=== PATIENT | male | born 1955 | race Caucasian/White ===

== ENCOUNTER 2022-10-19 10:55 | Day surgery (SDC) | payer MEDICARE, BC ==
[~2022-10-19 10:55] MED LIST: AZAT50TA18 PO; DULA0.75 SQ; IRON15TA3 PO; LIDOcaine 1% 30ml preserv. free vial SQ ONE; MECO10005 PO; PRED10TA23 PO; VITA1TAB97 PO
[2022-10-19] MEDS ORDERED: INSU100V5 IJ (11:12)
[2022-10-19] MEDS ORDERED: INSU100V9 SQ (11:12)
[2022-10-19] MEDS ORDERED: ATOR10TA70 PO (11:12)
[2022-10-19] MEDS ORDERED: ADAL40PE SUBCUT (11:14)
[2022-10-19 11:20] VITALS: BP 124/77
[2022-10-19 11:30] VITALS: BP 134/88
[2022-10-19 11:45] VITALS: BP 126/81
== END 2022-10-19 12:00 | disposition home or self-care (01) ==
LOC: SSTAY O 10:55
PROVIDERS: ATTEND Radiology Vascular & Interventional Radiology
DX: Z45.2 Encounter for adjustment and management of vascular access device (principal); K50.90 Crohn's disease, unspecified, without complications; E11.22 Type 2 diabetes mellitus with diabetic chronic kidney disease; N18.9 Chronic kidney disease, unspecified; I50.20 Unspecified systolic (congestive) heart failure; Z90.49 Acquired absence of other specified parts of digestive tract; Z93.3 Colostomy status; Z79.899 Other long term (current) drug therapy; Z79.4 Long term (current) use of insulin
CPT/HCPCS: 36589; A6258; A6449